=== PATIENT | male | born 1965 | race African-American/Black ===

== ENCOUNTER 2019-01-05 12:48 | Inpatient (IN) | payer OTHER, SELFPAY ==
[~2019-01-05] VITALS: Ht 170.2 cm; Wt 85.3 kg
[2019-01-05 14:03] LABS: BASO % 1 % (0-3); EOS % 1 % (0-3); HEMATOCRIT 41.5 % (39.0-53.0); HEMOGLOBIN 13.8 g/dL (13.0-17.5); LYMPH # 1.2 x10^3/uL (1.0-4.8); LYMPH % 23 % (24-48); MEAN CORPUSCULAR HEMOGLOBIN 28 pg (25-35); MEAN CORPUSCULAR HGB CONC 33 g/dL (31-37); MEAN CORPUSCULAR VOLUME 85 fL (79-100); MONO # 0.5 x10^3/uL (0.0-1.1); MONO % 10 % (0-9); NEUT # 3.5 x10^3uL (1.8-7.7); NEUT % 65 % (31-73); PLATELET COUNT 331 x10^3/uL (140-400); RED BLOOD COUNT 4.91 x10^6/uL (4.30-5.70); RED CELL DISTRIBUTION WIDTH 14.9 % (11.5-14.5); WHITE BLOOD COUNT 5.3 x10^3/uL (4.0-11.0)
[2019-01-05 14:09] LABS: CALCIUM 9.5 mg/dL (8.5-10.1); CREATININE 1.3 mg/dL (0.7-1.3); GFR 69.9
[2019-01-05 14:12] LABS: PROTHROMBIN TIME PATIENT 13.4 SEC (11.7-14.0)
[2019-01-05 14:15] LABS: ALBUMIN 3.9 g/dL (3.4-5.0); ALBUMIN/GLOBULIN RATIO 0.8 (1.0-1.7); TOTAL BILIRUBIN 0.4 mg/dL (0.2-1.0); TOTAL PROTEIN 8.5 g/dL (6.4-8.2)
--- NOTE | 2019-01-05 14:26 | EKG ---
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
--- NOTE | 2019-01-05 14:26 | RAD ---
CT HEAD WO CONTRAST Indication: Dizziness. Right-sided weakness. Exposure: One or more of the following individualized dose reduction techniques were utilized for this examination: 1. Automated exposure control 2. Adjustment of the mA and/or kV according to patient size 3. Use of iterative reconstruction technique. Technique: Standard imaging without intravenous contrast. No evidence of acute intracranial hemorrhage, mass effect, midline shift or abnormal extra-axial fluid collection. The ventricles and sulci are symmetric. Kennedy-white matter distinction appears maintained. Orbits are unremarkable. No large scalp hematoma. Partially visualized sinuses are clear. No acute skull abnormality. IMPRESSION: No evidence of acute intracranial hemorrhage or mass effect. Electronically signed by: Philip Hernandez MD (01/05/2019 2:23 PM) [id number]
[2019-01-05] MEDS ORDERED: CONTRAST GIVEN. MC PRN (15:00)
[2019-01-05] MEDS ORDERED: IOHEXOL 350 MG/ML 100 ML VIAL. IV ONE (15:00)
--- NOTE | 2019-01-05 15:16 | PHYS DOC ---
Past Medical History Past Medical History: Hypertension, Other (TIA) Past Surgical History: No Surgical History Alcohol Use: None Drug Use: Marijuana Adult General Chief Complaint Chief Complaint: DIZZY/LIGHT HEADED HPI HPI Patient is a 53 year old presented to the ER from work due to right side facial numbness, right side weakness since about 8 am today. Patient said he started having pain in his right side facial area since yesterday, woke up this morning and it was swollen. He went to work then started having dizziness episode with right side weakness. Patient denied any trouble with memory or speaking. He said he has history of stroke in the past and this episode is similar. Review of Systems Review of Systems Constitutional: Denies fever or chills [] Eyes: Denies change in visual acuity, redness, or eye pain [] HENT: Denies nasal congestion or sore throat, Positive for right upper facial pain and swelling. Respiratory: Denies cough or shortness of breath [] Cardiovascular: No additional information not addressed in HPI [] GI: Denies abdominal pain, nausea, vomiting, bloody stools or diarrhea [] : Denies dysuria or hematuria [] Musculoskeletal: Denies back pain or joint pain [] Integument: Denies rash or skin lesions [] Neurologic: Denies headache, Positive for Right side facial numbness, right side weakness. Endocrine: Denies polyuria or polydipsia [] All other systems were reviewed and found to be within normal limits, except as documented in this note. Current Medications Current Medications Current Medications Medications (Trade) Dose Ordered Sig/Suzan Start Time Stop Time Status Last Admin Dose Admin Info (CONTRAST GIVEN -- Rx MONITORING) 1 each PRN DAILY PRN 01/05/19 15:00 01/07/19 14:59 Iohexol (Omnipaque 350 Mg/ml) 75 ml 1X ONCE 01/05/19 15:00 01/05/19 15:01 DC 01/05/19 15:04 75 ML Allergies Allergies Allergies Coded Allergies Type Severity Reaction Last Updated Verified No Known Drug Allergies 01/05/19 No Physical Exam Physical Exam Constitutional: Well developed, well nourished, no acute distress, non-toxic appearance. [] HENT: Normocephalic, atraumatic, bilateral external ears normal, oropharynx moist, no oral exudates, nose normal. Right upper jaw swelling. There is tenderness to palpation in right upper gumline around the missed 2nd upper molar area. Eyes: PERRLA, EOMI, conjunctiva normal, no discharge. [] Neck: Normal range of motion, no tenderness, supple, no stridor. [] Cardiovascular:Heart rate regular rhythm, no murmur [] Lungs & Thorax: Bilateral breath sounds clear to auscultation [] Abdomen: Bowel sounds normal, soft, no tenderness, no masses, no pulsatile masses. [] Skin: Warm, dry, no erythema, no rash. [] Back: No tenderness, no CVA tenderness. [] Extremities: No tenderness, no cyanosis, no clubbing, ROM intact, no edema. [] Neurologic: Alert and oriented X 3, RIGHT LEG APPEARED WEAKER THAN LEFT LEG. HE WAS ABLE TO RAISE HIS RIGHT LEG UP AND NOT ABLE TO KEEP IT UP FOR 10 SECONDS. IT DRIFTED AND TOUCHED THE BED . speech clear. Psychologic: Affect normal, judgement normal, mood normal. [] Current Patient Data Vital Signs Vital Signs Date Time Temp Pulse Resp B/P (MAP) Pulse Ox O2 Delivery O2 Flow Rate FiO2 01/05/19 13:20 98.5 85 20 197/100 (132) 99 Room Air 98.5 Lab Values Laboratory Tests Test 01/05/19 13:45 White Blood Count 5.3 x10^3/uL (4.0-11.0) Red Blood Count 4.91 x10^6/uL (4.30-5.70) Hemoglobin 13.8 g/dL (13.0-17.5) Hematocrit 41.5 % (39.0-53.0) Mean Corpuscular Volume 85 fL (79-100) Mean Corpuscular Hemoglobin 28 pg (25-35) Mean Corpuscular Hemoglobin Concent 33 g/dL (31-37) Red Cell Distribution Width 14.9 % (11.5-14.5) H Platelet Count 331 x10^3/uL (140-400) Neutrophils (%) (Auto) 65 % (31-73) Lymphocytes (%) (Auto) 23 % (24-48) L Monocytes (%) (Auto) 10 % (0-9) H Eosinophils (%) (Auto) 1 % (0-3) Basophils (%) (Auto) 1 % (0-3) Neutrophils # (Auto) 3.5 x10^3uL (1.8-7.7) Lymphocytes # (Auto) 1.2 x10^3/uL (1.0-4.8) Monocytes # (Auto) 0.5 x10^3/uL (0.0-1.1) Eosinophils # (Auto) 0.0 x10^3/uL (0.0-0.7) Basophils # (Auto) 0.0 x10^3/uL (0.0-0.2) Prothrombin Time 13.4 SEC (11.7-14.0) Prothrombin Time INR 1.1 (0.8-1.1) PTT 34 SEC (24-38) Sodium Level 141 mmol/L (136-145) Potassium Level 4.0 mmol/L (3.5-5.1) Chloride Level 103 mmol/L (98-107) Carbon Dioxide Level 27 mmol/L (21-32) Anion Gap 11 (6-14) Blood Urea Nitrogen 17 mg/dL (8-26) Creatinine 1.3 mg/dL (0.7-1.3) Estimated GFR (Cockcroft-Gault) 69.9 BUN/Creatinine Ratio 13 (6-20) Glucose Level 90 mg/dL (70-99) Calcium Level 9.5 mg/dL (8.5-10.1) Total Bilirubin 0.4 mg/dL (0.2-1.0) Aspartate Amino Transferase (AST) 18 U/L (15-37) Alanine Aminotransferase (ALT) 31 U/L (16-63) Alkaline Phosphatase 92 U/L (46-116) Troponin I Quantitative < 0.017 ng/mL (0.000-0.055) Total Protein 8.5 g/dL (6.4-8.2) H Albumin 3.9 g/dL (3.4-5.0) Albumin/Globulin Ratio 0.8 (1.0-1.7) L Lipase 97 U/L (73-393) Laboratory Tests 01/05/19 13:45 Laboratory Tests 01/05/19 13:45 EKG EKG EKG RATE OF 91 BPM, NSR, NO STEMI[] Radiology/Procedures Radiology/Procedures [facility] [address] [place], [place] [id number] IMAGING REPORT Signed PATIENT: MALACHI MALDONADO ACCOUNT: [id number] : 1965 LOCATION: ER AGE: 53 SEX: M EXAM STATUS: REG ER ORD. PHYSICIAN: VERONICA MANNING DO REASON: RIGHT SIDE WEAKNESS, NUMBNESS SINCE 8 AM THIS MORNING PROCEDURE: CT ANGIOGRAPHY HEAD AND NECK PQRS Compliance Statement: One or more of the following individualized dose reduction techniques were utilized for this examination: 1. Automated exposure control 2. Adjustment of the mA and/or kV according to patient size 3. Use of iterative reconstruction technique CT ANGIOGRAPHY HEAD AND NECK Clinical Indication: Right-sided weakness and numbness since 8:00 AM this morning. Comparison: CT head without contrast, earlier same day. Technique: Helical CT imaging from inferior to the aortic arch to the skull vertex is performed after 75 cc of Omnipaque [address] angiogram protocol. 3-D MIP reconstructions of the cervical carotid arteries and [place] are performed. PQRS Compliance Statement - Stenosis calculations for CT, MR and conventional angiography are based upon measurement of the distal ICA diameter in accordance with the NASCET methodology. Stenosis calculations for carotid ultrasound studies are derived from validated velocity criteria which are known to correlate with the NASCET methodology. Findings: Aortic arch branches are patent, common origin of the innominate and left common carotid artery. The common carotid arteries are patent. Mild atherosclerotic calcification of the right carotid bulb without significant narrowing. Cervical right internal carotid artery is patent. Minimal atherosclerotic calcification left carotid bulb, no significant narrowing. Patent left internal carotid artery in the neck. The cervical vertebral arteries are patent. There is no evidence of dissection. The distal vertebral arteries are codominant. Basilar artery is patent. Posterior cerebral arteries are intact. There is atherosclerotic calcification and no more than mild narrowing of the bilateral cavernous internal carotid arteries. The right A1 segment is small caliber. There is patent anterior communicating artery. There is azygous A2 segment with subsequent branching versus directly apposed A2 segments. Middle cerebral arteries are patent. No intracranial stenosis or occlusion or intracranial aneurysm is identified. There is no abnormal enhancement in the brain parenchyma. There is no cervical adenopathy. There is biapical paraseptal emphysema. Degenerative spondylosis of the cervical spine. IMPRESSION: 1. There is no large vessel intracranial occlusion or stenosis. 2. Atherosclerotic calcification without significant narrowing of the bilateral cavernous internal carotid arteries. 3. Hypoplastic right A1 segment. Electronically signed by: Jose Hinojosa MD (01/05/2019 3:49 PM) [id number] DICTATED and SIGNED BY: JOSE HINOJOSA MD DATE: 01/05/19 1549 Course & Med Decision Making Course & Med Decision Making Pertinent Labs and Imaging studies reviewed. (See chart for details) [] Dragon Disclaimer Dragon Disclaimer This electronic medical record was generated, in whole or in part, using a voice recognition dictation system. Departure Departure Impression: Primary Impression: Right sided weakness Additional Impression: Dental abscess Disposition: ADMITTED INPATIENT Admitting Physician: Lou Michelle Condition: STABLE Referrals: NO PCP (PCP) Problem Qualifiers VERONICA MANNING DO January 05, 2019 15:16
--- NOTE | 2019-01-05 15:52 | RAD ---
PQRS Compliance Statement: One or more of the following individualized dose reduction techniques were utilized for this examination: 1. Automated exposure control 2. Adjustment of the mA and/or kV according to patient size 3. Use of iterative reconstruction technique CT ANGIOGRAPHY HEAD AND NECK Clinical Indication: Right-sided weakness and numbness since 8:00 AM this morning. Comparison: CT head without contrast, earlier same day. Technique: Helical CT imaging from inferior to the aortic arch to the skull vertex is performed after 75 cc of Omnipaque [address] angiogram protocol. 3-D MIP reconstructions of the cervical carotid arteries and [place] are performed. PQRS Compliance Statement - Stenosis calculations for CT, MR and conventional angiography are based upon measurement of the distal ICA diameter in accordance with the NASCET methodology. Stenosis calculations for carotid ultrasound studies are derived from validated velocity criteria which are known to correlate with the NASCET methodology. Findings: Aortic arch branches are patent, common origin of the innominate and left common carotid artery. The common carotid arteries are patent. Mild atherosclerotic calcification of the right carotid bulb without significant narrowing. Cervical right internal carotid artery is patent. Minimal atherosclerotic calcification left carotid bulb, no significant narrowing. Patent left internal carotid artery in the neck. The cervical vertebral arteries are patent. There is no evidence of dissection. The distal vertebral arteries are codominant. Basilar artery is patent. Posterior cerebral arteries are intact. There is atherosclerotic calcification and no more than mild narrowing of the bilateral cavernous internal carotid arteries. The right A1 segment is small caliber. There is patent anterior communicating artery. There is azygous A2 segment with subsequent branching versus directly apposed A2 segments. Middle cerebral arteries are patent. No intracranial stenosis or occlusion or intracranial aneurysm is identified. There is no abnormal enhancement in the brain parenchyma. There is no cervical adenopathy. There is biapical paraseptal emphysema. Degenerative spondylosis of the cervical spine. IMPRESSION: 1. There is no large vessel intracranial occlusion or stenosis. 2. Atherosclerotic calcification without significant narrowing of the bilateral cavernous internal carotid arteries. 3. Hypoplastic right A1 segment. Electronically signed by: Jose Hinojosa MD (01/05/2019 3:49 PM) [id number]
[2019-01-05] MEDS ORDERED: KETOROLAC 30 MG/ML VIAL. IV ONE (16:15)
[2019-01-05] MEDS ORDERED: CLINDAMYCIN 900MG PREMIX 50 ML IV ONE (16:15)
[2019-01-05] MEDS ORDERED: ONDANSETRON PF 4 MG/2 ML VIAL. IV PRN (16:30)
--- NOTE | 2019-01-05 19:23 | PDOC1 ---
History and Physical Date of Admission: Date of Admission DATE: 01/05/19 TIME: 19:21 Chief Complaint: Problems: (1) Dental abscess (2) Right sided weakness Chief Complain: Right-sided weakness History of Present Illness: HPI: Patient is a pleasant middle-aged -[place] male who states she's had a previous stroke with right-sided weakness but it resolved Now he has recurrent right-sided weakness with associated numbness occurred for several hours Describes as irritating Rated 9 out of 10 Worse with trying to move He tried taking some [id number] meds for that and seemed to help We did some imaging in the ER really doesn't show any acute changes but appears the patient may have had another stroke Were going to admit the patient and consult neurology Past Medical/Surgical History: PMH/PSH: Hypertension and marijuana use and previous stroke Allergies: Allergies: Coded Allergies: No Known Drug Allergies (Unverified , 01/05/19) Family History: Family History: Strokes Social History: Social Hisoty: He doesn't drink smoke or take drugs Current Medications: Current Medications Current Medications Iohexol (Omnipaque 350 Mg/ml) 75 ml 1X ONCE IV Last administered on 01/05/19at 15:04; Start 01/05/19 at 15:00; Stop 01/05/19 at 15:01; Status DC Info (CONTRAST GIVEN -- Rx MONITORING) 1 each PRN DAILY PRN MC SEE COMMENTS; Start 01/05/19 at 15:00; Stop 01/07/19 at 14:59 Clindamycin Phosphate 50 ml @ 100 mls/hr 1X ONCE IV Last administered on at 16:43; Start 01/05/19 at 16:15; Stop 01/05/19 at 16:44; Status DC Ketorolac Tromethamine (Toradol 30mg Vial) 30 mg 1X ONCE IV Last administered on 01/05/19at 16:38; Start 01/05/19 at 16:15; Stop 01/05/19 at 16:16; Status DC Ondansetron HCl (Zofran) 4 mg PRN Q8HRS PRN IV NAUSEA/VOMITING; Start 01/05/19 at 16:30; Stop 01/06/19 at 16:29 Clindamycin Phosphate 50 ml @ 100 mls/hr Q8HRS IV ; Start 01/05/19 at 22:00 ROS: Review of Systems Review of System REVIEW OF SYSTEMS: GENERAL: Denies weakness SKIN: No bruising, hair changes or rashes. EYES: No blurred, double or loss of vision. NOSE AND THROAT: No history of nosebleeds, hoarseness or sore throat. HEART: No history of palpitations, chest pain or shortness of breath on exertion. LUNGS: Denies cough, hemoptysis, wheezing or shortness of breath. GASTROINTESTINAL: Denies changes in appetite, nausea, vomiting, diarrhea or constipation. GENITOURINARY: No history of frequency, urgency, hesitancy or nocturia. NEUROLOGIC: He complains of right-sided weakness PSYCHIATRIC: No history of panic, anxiety or depression. ENDOCRINE: No history of heat or cold intolerance, polyuria or polydipsia. EXTREMITIES: Denies muscle weakness, joint pain, pain on walking or stiffness. Physical Exam: Vital Signs: Vital Signs Date Time Temp Pulse Resp B/P (MAP) Pulse Ox O2 Delivery O2 Flow Rate FiO2 01/05/19 13:20 98.5 85 20 197/100 (132) 99 Room Air 98.5 Physcial Exam: GEN.: No apparent distress. Alert and oriented. HEENT: Head is normocephalic, atraumatic NECK: Supple, no JVD LUNGS: Clear to auscultation without rhonchi or wheezing HEART: RRR, S1, S2 present. Peripheral pulses intact ABDOMEN: Soft, nontender. Positive bowel sounds no organomegaly EXTREMITIES: Without any cyanosis, clubbing, or edema. 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 Stable SKIN: No ulcerations or rashes VASCULAR: Good capillary refill Labs: Labs: Laboratory Tests Test 01/05/19 13:45 White Blood Count 5.3 x10^3/uL (4.0-11.0) Red Blood Count 4.91 x10^6/uL (4.30-5.70) Hemoglobin 13.8 g/dL (13.0-17.5) Hematocrit 41.5 % (39.0-53.0) Mean Corpuscular Volume 85 fL (79-100) Mean Corpuscular Hemoglobin 28 pg (25-35) Mean Corpuscular Hemoglobin Concent 33 g/dL (31-37) Red Cell Distribution Width 14.9 % (11.5-14.5) Platelet Count 331 x10^3/uL (140-400) Neutrophils (%) (Auto) 65 % (31-73) Lymphocytes (%) (Auto) 23 % (24-48) Monocytes (%) (Auto) 10 % (0-9) Eosinophils (%) (Auto) 1 % (0-3) Basophils (%) (Auto) 1 % (0-3) Neutrophils # (Auto) 3.5 x10^3uL (1.8-7.7) Lymphocytes # (Auto) 1.2 x10^3/uL (1.0-4.8) Monocytes # (Auto) 0.5 x10^3/uL (0.0-1.1) Eosinophils # (Auto) 0.0 x10^3/uL (0.0-0.7) Basophils # (Auto) 0.0 x10^3/uL (0.0-0.2) Prothrombin Time 13.4 SEC (11.7-14.0) Prothromb Time International Ratio 1.1 (0.8-1.1) Activated Partial Thromboplast Time 34 SEC (24-38) Sodium Level 141 mmol/L (136-145) Potassium Level 4.0 mmol/L (3.5-5.1) Chloride Level 103 mmol/L (98-107) Carbon Dioxide Level 27 mmol/L (21-32) Anion Gap 11 (6-14) Blood Urea Nitrogen 17 mg/dL (8-26) Creatinine 1.3 mg/dL (0.7-1.3) Estimated GFR (Cockcroft-Gault) 69.9 BUN/Creatinine Ratio 13 (6-20) Glucose Level 90 mg/dL (70-99) Calcium Level 9.5 mg/dL (8.5-10.1) Total Bilirubin 0.4 mg/dL (0.2-1.0) Aspartate Amino Transf (AST/SGOT) 18 U/L (15-37) Alanine Aminotransferase (ALT/SGPT) 31 U/L (16-63) Alkaline Phosphatase 92 U/L (46-116) Troponin I Quantitative < 0.017 ng/mL (0.000-0.055) Total Protein 8.5 g/dL (6.4-8.2) Albumin 3.9 g/dL (3.4-5.0) Albumin/Globulin Ratio 0.8 (1.0-1.7) Lipase 97 U/L (73-393) Laboratory Tests Test 01/05/19 13:45 White Blood Count 5.3 x10^3/uL (4.0-11.0) Red Blood Count 4.91 x10^6/uL (4.30-5.70) Hemoglobin 13.8 g/dL (13.0-17.5) Hematocrit 41.5 % (39.0-53.0) Mean Corpuscular Volume 85 fL (79-100) Mean Corpuscular Hemoglobin 28 pg (25-35) Mean Corpuscular Hemoglobin Concent 33 g/dL (31-37) Red Cell Distribution Width 14.9 % (11.5-14.5) Platelet Count 331 x10^3/uL (140-400) Neutrophils (%) (Auto) 65 % (31-73) Lymphocytes (%) (Auto) 23 % (24-48) Monocytes (%) (Auto) 10 % (0-9) Eosinophils (%) (Auto) 1 % (0-3) Basophils (%) (Auto) 1 % (0-3) Neutrophils # (Auto) 3.5 x10^3uL (1.8-7.7) Lymphocytes # (Auto) 1.2 x10^3/uL (1.0-4.8) Monocytes # (Auto) 0.5 x10^3/uL (0.0-1.1) Eosinophils # (Auto) 0.0 x10^3/uL (0.0-0.7) Basophils # (Auto) 0.0 x10^3/uL (0.0-0.2) Prothrombin Time 13.4 SEC (11.7-14.0) Prothromb Time International Ratio 1.1 (0.8-1.1) Activated Partial Thromboplast Time 34 SEC (24-38) Sodium Level 141 mmol/L (136-145) Potassium Level 4.0 mmol/L (3.5-5.1) Chloride Level 103 mmol/L (98-107) Carbon Dioxide Level 27 mmol/L (21-32) Anion Gap 11 (6-14) Blood Urea Nitrogen 17 mg/dL (8-26) Creatinine 1.3 mg/dL (0.7-1.3) Estimated GFR (Cockcroft-Gault) 69.9 BUN/Creatinine Ratio 13 (6-20) Glucose Level 90 mg/dL (70-99) Calcium Level 9.5 mg/dL (8.5-10.1) Total Bilirubin 0.4 mg/dL (0.2-1.0) Aspartate Amino Transf (AST/SGOT) 18 U/L (15-37) Alanine Aminotransferase (ALT/SGPT) 31 U/L (16-63) Alkaline Phosphatase 92 U/L (46-116) Troponin I Quantitative < 0.017 ng/mL (0.000-0.055) Total Protein 8.5 g/dL (6.4-8.2) Albumin 3.9 g/dL (3.4-5.0) Albumin/Globulin Ratio 0.8 (1.0-1.7) Lipase 97 U/L (73-393) Images: Images CT head IMPRESSION: 1. There is no large vessel intracranial occlusion or stenosis. 2. Atherosclerotic calcification without significant narrowing of the bilateral cavernous internal carotid arteries. 3. Hypoplastic right A1 segment. Assessment/Plan Assessment/Plan Stroke symptoms Plan Increase his aspirin Consult neurology PT OT Suspect he might need an MRI but will await neurology input DVT prophylaxis Full code Home meds STEPHEN MACIEL III DO January 05, 2019 19:23
[2019-01-05 19:35] VITALS: BP 175/92
[2019-01-05] MEDS: CLINDAMYCIN 900MG PREMIX 50 ML IV SCH (22:11)
[2019-01-05 23:40] VITALS: BP 144/81
[2019-01-06] MEDS ORDERED: LISI-130 PO (00:19)
[2019-01-06] MEDS ORDERED: ASPI325T8 PO (00:19)
[2019-01-06] MEDS ORDERED: ATOR20TA58 PO (00:19)
[2019-01-06] MEDS ORDERED: ACETAMINOPHEN 325 MG TABLET. PO PRN ×2 (01:30→08:30)
[2019-01-06] MEDS: traMADol 50 MG TABLET PO PRN ×3 (02:48→14:17)
[2019-01-06 03:35] VITALS: BP 174/91
[2019-01-06] MEDS: CLINDAMYCIN 900MG PREMIX 50 ML IV SCH ×3 (05:59→20:50)
[2019-01-06] MEDS: HYDROcodone/APAP 5/325MG 1 TAB TABLET PO PRN ×2 (05:59→22:16)
[2019-01-06 07:30] VITALS: BP 146/84
[2019-01-06] MEDS: ATORVASTATIN CALCIUM 20 MG TABLET PO SCH (08:23)
[2019-01-06] MEDS: LISINOPRIL 20 MG TABLET PO SCH (08:24)
[2019-01-06] MEDS: ASPIRIN 325 MG TABLET PO SCH (08:24)
[2019-01-06] MEDS ORDERED: ACETAMINOPHEN 650 MG SUPP.RECT. PR PRN (08:30)
--- NOTE | 2019-01-06 08:46 | PDOC2 ---
NEUROLOGY CONSULT Date of Admission Date of Admission DATE: 01/06/19 TIME: 08:40 Reason for Consult Reason for Consult: Right-sided numbness and weakness Referring Physician Referring Physician: Dr. 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 He noticed some numbness and weakness on the right side yesterday morning. He says he made about a 70% recovery from the prior strokes but gets around unassisted. He had trouble walking. There was no trouble speaking. There was both numbness and weakness on the right side but no cognitive deficits or visual changes. Patient's blood pressure was elevated. He has no history of seizure or head injury. Past Medical History Cardiovascular: HTN CENTRAL NERVOUS SYSTEM: CVA, TIA, Other (headaches) Musculoskeletal: low back pain Renal/: Other (kidney stones) Past Surgical History Past Surgical History: No pertinent history Family History Family History: Hypertension Social History Social History Unemployed, single, no alcohol or tobacco, occasional use of marijuana Current Medications Current Medications Current Medications Iohexol (Omnipaque 350 Mg/ml) 75 ml 1X ONCE IV Last administered on 01/05/19at 15:04; Start 01/05/19 at 15:00; Stop 01/05/19 at 15:01; Status DC Info (CONTRAST GIVEN -- Rx MONITORING) 1 each PRN DAILY PRN MC SEE COMMENTS; Start 01/05/19 at 15:00; Stop 01/07/19 at 14:59 Clindamycin Phosphate 50 ml @ 100 mls/hr 1X ONCE IV Last administered on 01/05/19at 16:43; Start 01/05/19 at 16:15; Stop 01/05/19 at 16:44; Status DC Ketorolac Tromethamine (Toradol 30mg Vial) 30 mg 1X ONCE IV Last administered on 01/05/19at 16:38; Start 01/05/19 at 16:15; Stop 01/05/19 at 16:16; Status DC Ondansetron HCl (Zofran) 4 mg PRN Q8HRS PRN IV NAUSEA/VOMITING; Start 01/05/19 at 16:30; Stop 01/06/19 at 16:29 Clindamycin Phosphate 50 ml @ 100 mls/hr Q8HRS IV Last administered on 01/06/19 05:59; Start 01/05/19 at 22:00 Aspirin (Kori Aspirin) 325 mg DAILY PO Last administered on 01/06/19at 08:24; Start 01/06/19 at 09:00 Atorvastatin Calcium (Lipitor) 20 mg DAILY PO Last administered on 01/06/19at 08:23; Start 01/06/19 at 09:00 Lisinopril (Prinivil) 40 mg DAILY PO Last administered on 01/06/19at 08:24; Start 01/06/19 at 09:00 Acetaminophen (Tylenol) 650 mg PRN Q6HRS PRN PO mild pain; Start 01/06/19 at 01:30 Tramadol HCl (Ultram) 50 mg PRN Q4HRS PRN PO moderate pain Last administered on 01/06/19at 08:25; Start 01/06/19 at 01:30 Acetaminophen/ Hydrocodone Bitart (Lortab 5/325) 1 tab PRN Q3HRS PRN PO severe pain Last administered on 01/06/19at 05:59; Start 01/06/19 at 01:30 Acetaminophen (Tylenol) 650 mg PRN Q6HRS PRN PO TEMP > 100.4F; Start 01/06/19 at 08:30 Acetaminophen (Tylenol Supp) 650 mg PRN Q4HRS PRN MD TEMP > 100.4F; Start 01/06/19 at 08:30 Clopidogrel Bisulfate (Plavix) 75 mg DAILYWBKFT PO ; Start 01/06/19 at 08:30 Active Scripts Active Reported Aspirin 325 Mg Tablet 325 Mg PO DAILY Atorvastatin Calcium 20 Mg Tablet 20 Mg PO DAILY Lisinopril 40 Mg Tablet 40 Mg PO DAILY Allergies Allergies: Coded Allergies: No Known Drug Allergies (Unverified , 01/05/19) ROS Review of System Negative for fever, chills, weight loss, shortness of breath, chest pain, indigestion, hematochezia, melena, and dysuria. Full 14-point review of systems is negative. Physical Exam Physical Examination General: Well-developed, well-nourished black male in no acute distress HEENT: Normocephalic andatraumatic. Temporal arteriespulsatile and nontender. Neck: Supple without bruit, no meningismus Musculoskeletal: Stability:see neurologic. Gait exam:see neurologic. Tone:see neurologic.Strength:see neurologic. Neurological: Mental Status:intact, orientation, memory, attention span/concentration, language, fund of knowledge normal. Cranial Nerves:Pupils equal and reactive to light, extraocular movements areintact, visual tello are full to confrontation. Facial sensation is normal. There is no facial asymmetry. Vestibulo-ocular reflex is intact. Palate elevates and tongue protrudes in midline. All other cranial related problems are negative except as mentioned before.Reflexes:2+ and symmetric with flexor plantar responses. Motor:4/5 right hemiparesis, normal strength on left, with normal tone and bulk. Coordination:Finger-nose finger and podr-ib-ywxp testing are normal on left, no ataxia out of proportion to weakness on the right. Rapid alternating movements and fine finger movements are intact. Gait:not tested. Sensory:Right sided pinprick loss Vitals VITALS Vital Signs Date Time Temp Pulse Resp B/P (MAP) Pulse Ox O2 Delivery O2 Flow Rate FiO2 01/06/19 08:25 19 95 Room Air 01/06/19 08:24 78 146/84 01/06/19 07:30 98.5 98.5 Labs Labs Laboratory Tests Test 01/05/19 13:45 White Blood Count 5.3 x10^3/uL (4.0-11.0) Red Blood Count 4.91 x10^6/uL (4.30-5.70) Hemoglobin 13.8 g/dL (13.0-17.5) Hematocrit 41.5 % (39.0-53.0) Mean Corpuscular Volume 85 fL (79-100) Mean Corpuscular Hemoglobin 28 pg (25-35) Mean Corpuscular Hemoglobin Concent 33 g/dL (31-37) Red Cell Distribution Width 14.9 % (11.5-14.5) Platelet Count 331 x10^3/uL (140-400) Neutrophils (%) (Auto) 65 % (31-73) Lymphocytes (%) (Auto) 23 % (24-48) Monocytes (%) (Auto) 10 % (0-9) Eosinophils (%) (Auto) 1 % (0-3) Basophils (%) (Auto) 1 % (0-3) Neutrophils # (Auto) 3.5 x10^3uL (1.8-7.7) Lymphocytes # (Auto) 1.2 x10^3/uL (1.0-4.8) Monocytes # (Auto) 0.5 x10^3/uL (0.0-1.1) Eosinophils # (Auto) 0.0 x10^3/uL (0.0-0.7) Basophils # (Auto) 0.0 x10^3/uL (0.0-0.2) Prothrombin Time 13.4 SEC (11.7-14.0) Prothromb Time International Ratio 1.1 (0.8-1.1) Activated Partial Thromboplast Time 34 SEC (24-38) Sodium Level 141 mmol/L (136-145) Potassium Level 4.0 mmol/L (3.5-5.1) Chloride Level 103 mmol/L (98-107) Carbon Dioxide Level 27 mmol/L (21-32) Anion Gap 11 (6-14) Blood Urea Nitrogen 17 mg/dL (8-26) Creatinine 1.3 mg/dL (0.7-1.3) Estimated GFR (Cockcroft-Gault) 69.9 BUN/Creatinine Ratio 13 (6-20) Glucose Level 90 mg/dL (70-99) Calcium Level 9.5 mg/dL (8.5-10.1) Total Bilirubin 0.4 mg/dL (0.2-1.0) Aspartate Amino Transf (AST/SGOT) 18 U/L (15-37) Alanine Aminotransferase (ALT/SGPT) 31 U/L (16-63) Alkaline Phosphatase 92 U/L (46-116) Troponin I Quantitative < 0.017 ng/mL (0.000-0.055) Total Protein 8.5 g/dL (6.4-8.2) Albumin 3.9 g/dL (3.4-5.0) Albumin/Globulin Ratio 0.8 (1.0-1.7) Lipase 97 U/L (73-393) Laboratory Tests Test 01/05/19 13:45 White Blood Count 5.3 x10^3/uL (4.0-11.0) Red Blood Count 4.91 x10^6/uL (4.30-5.70) Hemoglobin 13.8 g/dL (13.0-17.5) Hematocrit 41.5 % (39.0-53.0) Mean Corpuscular Volume 85 fL (79-100) Mean Corpuscular Hemoglobin 28 pg (25-35) Mean Corpuscular Hemoglobin Concent 33 g/dL (31-37) Red Cell Distribution Width 14.9 % (11.5-14.5) Platelet Count 331 x10^3/uL (140-400) Neutrophils (%) (Auto) 65 % (31-73) Lymphocytes (%) (Auto) 23 % (24-48) Monocytes (%) (Auto) 10 % (0-9) Eosinophils (%) (Auto) 1 % (0-3) Basophils (%) (Auto) 1 % (0-3) Neutrophils # (Auto) 3.5 x10^3uL (1.8-7.7) Lymphocytes # (Auto) 1.2 x10^3/uL (1.0-4.8) Monocytes # (Auto) 0.5 x10^3/uL (0.0-1.1) Eosinophils # (Auto) 0.0 x10^3/uL (0.0-0.7) Basophils # (Auto) 0.0 x10^3/uL (0.0-0.2) Prothrombin Time 13.4 SEC (11.7-14.0) Prothromb Time International Ratio 1.1 (0.8-1.1) Activated Partial Thromboplast Time 34 SEC (24-38) Sodium Level 141 mmol/L (136-145) Potassium Level 4.0 mmol/L (3.5-5.1) Chloride Level 103 mmol/L (98-107) Carbon Dioxide Level 27 mmol/L (21-32) Anion Gap 11 (6-14) Blood Urea Nitrogen 17 mg/dL (8-26) Creatinine 1.3 mg/dL (0.7-1.3) Estimated GFR (Cockcroft-Gault) 69.9 BUN/Creatinine Ratio 13 (6-20) Glucose Level 90 mg/dL (70-99) Calcium Level 9.5 mg/dL (8.5-10.1) Total Bilirubin 0.4 mg/dL (0.2-1.0) Aspartate Amino Transf (AST/SGOT) 18 U/L (15-37) Alanine Aminotransferase (ALT/SGPT) 31 U/L (16-63) Alkaline Phosphatase 92 U/L (46-116) Troponin I Quantitative < 0.017 ng/mL (0.000-0.055) Total Protein 8.5 g/dL (6.4-8.2) Albumin 3.9 g/dL (3.4-5.0) Albumin/Globulin Ratio 0.8 (1.0-1.7) Lipase 97 U/L (73-393) Images Images CT HEAD WO CONTRAST Indication: Dizziness. Right-sided weakness. Exposure: One or more of the following individualized dose reduction techniques were utilized for this examination: 1. Automated exposure control 2. Adjustment of the mA and/or kV according to patient size 3. Use of iterative reconstruction technique. Technique: Standard imaging without intravenous contrast. No evidence of acute intracranial hemorrhage, mass effect, midline shift or abnormal extra-axial fluid collection. The ventricles and sulci are symmetric. Kennedy-white matter distinction appears maintained. Orbits are unremarkable. No large scalp hematoma. Partially visualized sinuses are clear. No acute skull abnormality. IMPRESSION: No evidence of acute intracranial hemorrhage or mass effect. CT ANGIOGRAPHY HEAD AND NECK Clinical Indication: Right-sided weakness and numbness since 8:00 AM this morning. Comparison: CT head without contrast, earlier same day. Technique: Helical CT imaging from inferior to the aortic arch to the skull vertex is performed after 75 cc of Omnipaque [address] angiogram protocol. 3-D MIP reconstructions of the cervical carotid arteries and [place] are performed. PQRS Compliance Statement - Stenosis calculations for CT, MR and conventional angiography are based upon measurement of the distal ICA diameter in accordance with the NASCET methodology. Stenosis calculations for carotid ultrasound studies are derived from validated velocity criteria which are known to correlate with the NASCET methodology. Findings: Aortic arch branches are patent, common origin of the innominate and left common carotid artery. The common carotid arteries are patent. Mild atherosclerotic calcification of the right carotid bulb without significant narrowing. Cervical right internal carotid artery is patent. Minimal atherosclerotic calcification left carotid bulb, no significant narrowing. Patent left internal carotid artery in the neck. The cervical vertebral arteries are patent. There is no evidence of dissection. The distal vertebral arteries are codominant. Basilar artery is patent. Posterior cerebral arteries are intact. There is atherosclerotic calcification and no more than mild narrowing of the bilateral cavernous internal carotid arteries. The right A1 segment is small caliber. There is patent anterior communicating artery. There is azygous A2 segment with subsequent branching versus directly apposed A2 segments. Middle cerebral arteries are patent. No intracranial stenosis or occlusion or intracranial aneurysm is identified. There is no abnormal enhancement in the brain parenchyma. There is no cervical adenopathy. There is biapical paraseptal emphysema. Degenerative spondylosis of the cervical spine. IMPRESSION: 1. There is no large vessel intracranial occlusion or stenosis. 2. Atherosclerotic calcification without significant narrowing of the bilateral cavernous internal carotid arteries. 3. Hypoplastic right A1 segment. Assessment/Plan Assessment/Plan Impression: Left hemispheric small-vessel, lacunar, stroke, no evidence of large-vessel disease, apparently recurrent symptoms. These could be from his hypertension and he may not have even had a new stroke, but an MRI will settle matter. He has had a normal CT angiogram already. Recommendations: He has failed on aspirin, I will add on clopidogrel with an aim to discontinue the aspirin after a few weeks Echocardiogram Rehabilitation modalities, I suspect he will need inpatient therapy MRI of the brain Continue statin, check lipids Thank you for letting me help with the patient's care. YISEL ARZOLA MD January 06, 2019 08:46
[2019-01-06] MEDS ORDERED: ONDANSETRON PF 4 MG/2 ML VIAL. IV PRN (09:45)
[2019-01-06] MEDS ORDERED: LABETALOL 20 MG/4 ML DISP.SYRIN. IVP PRN (09:45)
--- NOTE | 2019-01-06 11:02 | RAD ---
MRI of the brain without contrast 01/06/2019 Clinical History: Dizziness, right-sided weakness. Technique: Unenhanced T1-weighted sagittal and axial, T2-weighted axial and coronal and FLAIR, gradient echo and diffusion-weighted axial images of the brain were obtained. Findings: Comparison is made to the patient's CT scan of the head dated 01/05/2019. There is mild generalized parenchymal atrophy. Patchy and a few small scattered areas of increased signal intensity are seen within the periventricular and subcortical white matter of both cerebral hemispheres on the FLAIR and T2-weighted images consistent with areas of minimal small vessel ischemic disease. No acute parenchymal abnormality is seen. No extra-axial fluid collection is seen. There is no MRI evidence of acute ischemia/infarction. Mild mucosal thickening in seen scattered throughout the paranasal sinuses. There are minimal bilateral mastoid effusions. Normal flow voids are seen within the major vascular structures surrounding the brain parenchyma. Impression: No acute parenchymal abnormality is seen. Electronically signed by: Issa Hickey MD (01/06/2019 10:59 AM) [id number]
--- NOTE | 2019-01-06 11:25 | NUR ---
Bedside Swallow Evaluation completed. Please refer to full evaluation for additional information. Impressions: Functional oropharyngeal swallow. While pt demonstrates min-mild R facial/labial weakness, and has mild mastication inefficiency r/t dental abscess and missing dentition, pt appears at low risk of aspiration for all consistencies. Pt independently manages boluses to chew on L side to decrease pain. No s/s aspiration were observed throughout evaluation. Recommendations: Continue current regular diet and thin liquids. General swallow precautions (especially sitting upright for eating and drinking) which were d/w pt and pt's mother at bedside. No additional ST intervention indicated at this time.
[2019-01-06 11:50] VITALS: BP 148/91
--- NOTE | 2019-01-06 12:28 | CARD ---
MR#: [id number] Date of Study: 01/06/2019 Ordering Physician: YISEL ARZOLA, Referring Physician: STEPHEN MACIEL Tech: Mandi Torres KVNG APPROVED REPORT EXAM: Two-dimensional and M-mode echocardiogram with Doppler, color Doppler with bubble study. Other Information Quality : GoodHR: 60bpm Rhythm : NSR INDICATION CVA/TIA 2D DIMENSIONS RVDd3.2 (2.9-3.5cm)Left Atrium(2D)3.4 (1.6-4.0cm) IVSd1.2 (0.7-1.1cm)Aortic Root(2D)3.0 (2.0-3.7cm) LVDd4.1 (3.9-5.9cm)LVOT Diameter2.0 (1.8-2.4cm) PWd0.9 (0.7-1.1cm)LVDs3.1 (2.5-4.0cm) FS (%) 25.3 %SV38.4 ml LVEF(%)50.3 (>50%) M-Mode DIMENSIONS Left Atrium(MM)3.26 (2.5-4.0cm)Aortic Root2.98 (2.2-3.7cm) Aortic Valve AoV Peak Klever.108.5cm/sAoV VTI23.4cm AO Peak GR.4.7mmHgLVOT Peak Klever.90.5cm/s AO Mean GR.3mmHgAVA (VMAX)2.60cm2 AUGUSTINE (VTI)2.60cm2 Mitral Valve MV E Zzbvrmjj40.6cm/sMV DECEL RZAB068bi MV A Obrxkzuu15.5cm/sE/A Ratio1.7 Pulmonary Valve PV Peak Zqkkxnvx53.9cm/s LEFT VENTRICLE The left ventricle is normal size. Proximal septal thickening is noted. Left ventricle systolic funct ion is normal. The Ejection Fraction is 55-60%. There is normal LV segmental wall motion. Transmitral Doppler flow pattern is Grade II-pseudonormal filling dynamics. RIGHT VENTRICLE The right ventricle is normal size. There is normal right ventricular wall thickness. The right ventr icular systolic function is normal. ATRIA The left atrium size is normal. The right atrium size is normal. The interatrial septum is intact wit h no evidence for an atrial septal defect or patent foramen ovale as noted on 2-D or Doppler imaging. Injection of bubbles documented no interatrial shunt. AORTIC VALVE The aortic valve is calcified but opens well. The aortic valve is trileaflet. Doppler and Color Flow revealed no significant aortic regurgitation. There is no significant aortic valvular stenosis. MITRAL VALVE The mitral valve is normal in structure and function. There is no evidence of mitral valve prolapse. There is no mitral valve stenosis. Doppler and Color Flow revealed no mitral valve regurgitation note d. TRICUSPID VALVE The tricuspid valve is normal in structure and function. Doppler and Color Flow revealed trace tricus pid regurgitation. There is no tricuspid valve prolapse or vegetation. There is no tricuspid valve st enosis. PULMONIC VALVE The pulmonic valve is not well visualized. GREAT VESSELS The aortic root is normal in size. The ascending aorta is normal in size. The IVC is normal in size a nd collapses >50% with inspiration. PERICARDIAL EFFUSION There is no evidence of significant pericardial effusion. Critical Notification Critical Value: No <Conclusion> Left ventricle systolic function is normal. The Ejection Fraction is 55-60%. There is normal LV segmental wall motion. Doppler and Color Flow revealed trace tricuspid regurgitation. There is no evidence of significant pericardial effusion. Injection of bubbles documented no interatrial shunt. Signed by : Adam Jade, Electronically Approved : 01/06/2019 12:27:27
[2019-01-06] MEDS ORDERED: CLOP75TA PO (12:52)
[2019-01-06] MEDS ORDERED: CLIN300C8 PO (12:55)
--- NOTE | 2019-01-06 12:59 | PDOC3 ---
Discharge Summary Visit Information Date of Admission: January 05, 2019 Date of Discharge: January 06, 2019 Admitting Diagnosis Comment: Left hemispheric small-vessel, lacunar, stroke, no evidence of large-vessel disease, DentaL abscess Hx CVA, [facility] intervention Final Diagnosis Problems Medical Problems: (1) Dental abscess Status: Acute (2) Right sided weakness Status: Acute Brief Hospital Course Allergies Allergies Coded Allergies Type Severity Reaction Last Updated Verified No Known Drug Allergies 01/05/19 No Vital Signs Vital Signs Date Time Temp Pulse Resp B/P (MAP) Pulse Ox O2 Delivery O2 Flow Rate FiO2 01/06/19 11:50 98.4 74 20 148/91 (110) 99 Room Air 98.4 Lab Results Laboratory Tests Test 01/05/19 13:45 White Blood Count 5.3 x10^3/uL (4.0-11.0) Red Blood Count 4.91 x10^6/uL (4.30-5.70) Hemoglobin 13.8 g/dL (13.0-17.5) Hematocrit 41.5 % (39.0-53.0) Mean Corpuscular Volume 85 fL (79-100) Mean Corpuscular Hemoglobin 28 pg (25-35) Mean Corpuscular Hemoglobin Concent 33 g/dL (31-37) Red Cell Distribution Width 14.9 % (11.5-14.5) Platelet Count 331 x10^3/uL (140-400) Neutrophils (%) (Auto) 65 % (31-73) Lymphocytes (%) (Auto) 23 % (24-48) Monocytes (%) (Auto) 10 % (0-9) Eosinophils (%) (Auto) 1 % (0-3) Basophils (%) (Auto) 1 % (0-3) Neutrophils # (Auto) 3.5 x10^3uL (1.8-7.7) Lymphocytes # (Auto) 1.2 x10^3/uL (1.0-4.8) Monocytes # (Auto) 0.5 x10^3/uL (0.0-1.1) Eosinophils # (Auto) 0.0 x10^3/uL (0.0-0.7) Basophils # (Auto) 0.0 x10^3/uL (0.0-0.2) Prothrombin Time 13.4 SEC (11.7-14.0) Prothromb Time International Ratio 1.1 (0.8-1.1) Activated Partial Thromboplast Time 34 SEC (24-38) Sodium Level 141 mmol/L (136-145) Potassium Level 4.0 mmol/L (3.5-5.1) Chloride Level 103 mmol/L (98-107) Carbon Dioxide Level 27 mmol/L (21-32) Anion Gap 11 (6-14) Blood Urea Nitrogen 17 mg/dL (8-26) Creatinine 1.3 mg/dL (0.7-1.3) Estimated GFR (Cockcroft-Gault) 69.9 BUN/Creatinine Ratio 13 (6-20) Glucose Level 90 mg/dL (70-99) Calcium Level 9.5 mg/dL (8.5-10.1) Total Bilirubin 0.4 mg/dL (0.2-1.0) Aspartate Amino Transf (AST/SGOT) 18 U/L (15-37) Alanine Aminotransferase (ALT/SGPT) 31 U/L (16-63) Alkaline Phosphatase 92 U/L (46-116) Troponin I Quantitative < 0.017 ng/mL (0.000-0.055) Total Protein 8.5 g/dL (6.4-8.2) Albumin 3.9 g/dL (3.4-5.0) Albumin/Globulin Ratio 0.8 (1.0-1.7) Lipase 97 U/L (73-393) Laboratory Tests Test 01/05/19 13:45 White Blood Count 5.3 x10^3/uL (4.0-11.0) Red Blood Count 4.91 x10^6/uL (4.30-5.70) Hemoglobin 13.8 g/dL (13.0-17.5) Hematocrit 41.5 % (39.0-53.0) Mean Corpuscular Volume 85 fL (79-100) Mean Corpuscular Hemoglobin 28 pg (25-35) Mean Corpuscular Hemoglobin Concent 33 g/dL (31-37) Red Cell Distribution Width 14.9 % (11.5-14.5) Platelet Count 331 x10^3/uL (140-400) Neutrophils (%) (Auto) 65 % (31-73) Lymphocytes (%) (Auto) 23 % (24-48) Monocytes (%) (Auto) 10 % (0-9) Eosinophils (%) (Auto) 1 % (0-3) Basophils (%) (Auto) 1 % (0-3) Neutrophils # (Auto) 3.5 x10^3uL (1.8-7.7) Lymphocytes # (Auto) 1.2 x10^3/uL (1.0-4.8) Monocytes # (Auto) 0.5 x10^3/uL (0.0-1.1) Eosinophils # (Auto) 0.0 x10^3/uL (0.0-0.7) Basophils # (Auto) 0.0 x10^3/uL (0.0-0.2) Prothrombin Time 13.4 SEC (11.7-14.0) Prothromb Time International Ratio 1.1 (0.8-1.1) Activated Partial Thromboplast Time 34 SEC (24-38) Sodium Level 141 mmol/L (136-145) Potassium Level 4.0 mmol/L (3.5-5.1) Chloride Level 103 mmol/L (98-107) Carbon Dioxide Level 27 mmol/L (21-32) Anion Gap 11 (6-14) Blood Urea Nitrogen 17 mg/dL (8-26) Creatinine 1.3 mg/dL (0.7-1.3) Estimated GFR (Cockcroft-Gault) 69.9 BUN/Creatinine Ratio 13 (6-20) Glucose Level 90 mg/dL (70-99) Calcium Level 9.5 mg/dL (8.5-10.1) Total Bilirubin 0.4 mg/dL (0.2-1.0) Aspartate Amino Transf (AST/SGOT) 18 U/L (15-37) Alanine Aminotransferase (ALT/SGPT) 31 U/L (16-63) Alkaline Phosphatase 92 U/L (46-116) Troponin I Quantitative < 0.017 ng/mL (0.000-0.055) Total Protein 8.5 g/dL (6.4-8.2) Albumin 3.9 g/dL (3.4-5.0) Albumin/Globulin Ratio 0.8 (1.0-1.7) Lipase 97 U/L (73-393) Brief Hospital Course Mr. Hatfield is a 53 old male who came in with right-sided numbness and weakness. MRI negative, CTA CT head also unremarkable. He does have a dental abscess and started on Clinda. Already on aspirin full dose, history of CVA in the past otherwise seems to have fully recovered mostly, history of [facility] hospitalization for past CVAs. Neurology consulted, advised to start plavix, taper ASA/bridge for 2-3 weeks - ASA failure bec of sxs. New Rx Plavix and clinda ALl on chart' No PT needs Dw family at bedside proc; stroke work up Discharge Information Condition at Discharge: Improved, Stable Follow Up: Weeks (dentist; neuro prn) Disposition/Orders: D/C to Home Scheduled Aspirin (Aspirin) 325 Mg Tablet, 325 MG PO DAILY for TIA, (Reported) Entered as Reported by: ERNESTO HARTMAN RN on 01/06/1918 Last Action: Continued on 01/06/1919 by ERNESTO HARTMAN RN Atorvastatin Calcium (Atorvastatin Calcium) 20 Mg Tablet, 20 MG PO DAILY for FOR CHOLESTEROL, #30 Ref 0 (Reported) Entered as Reported by: ERNESTO HARTMAN RN on 01/06/1918 Last Action: Continued on 01/06/1919 by ERNESTO HARTMAN RN Clindamycin Hcl (Clindamycin Hcl) 300 Mg Capsule, 1 CAP PO TID for dental abscess, #21 Prescribed by: AILEEN OAKLEY on 01/06/19 1255 Clopidogrel Bisulfate (Clopidogrel) 75 Mg Tablet, 75 MG PO DAILYWBKFT for hx cva MDD 1, #60 Prescribed by: AILEEN OAKLEY on 01/06/19 1252 Lisinopril (Lisinopril) 40 Mg Tablet, 40 MG PO DAILY for FOR HYPERTENSION, #30 Ref 0 (Reported) Entered as Reported by: ERNESTO HARTMAN RN on 01/06/1918 Last Action: Continued on 01/06/1919 by LANG HU CHERRIE Y MD January 06, 2019 12:59
[2019-01-06] MEDS: CLOPIDOGREL BISULFATE 75 MG TABLET PO SCH (14:01)
--- NOTE | 2019-01-06 14:52 | NUR ---
SW consulted for ADL's needs rehab. Chart reviewed. Pt is self pay and does not qualify for SNU/Rehab evaluation. RA Physician.
[2019-01-06 15:28] VITALS: BP 142/90
[2019-01-06 19:35] VITALS: BP 147/97
--- NOTE | 2019-01-06 19:51 | NUR ---
Patient is for discharge today, however he stated that he's going to drive home. This nurse told him he cannot drive today. He's also refusing discharge saying that he still feels weak and he discussed it with PT/OT. Discussed with charge nurse and also paged the nurse supervisor prep. The patient was told that we can arrange a cab for him, however, he still refused.
[2019-01-06 23:35] VITALS: BP 135/78
[2019-01-07] MEDS: CLINDAMYCIN 900MG PREMIX 50 ML IV SCH (03:54)
[2019-01-07 05:39] LABS: CHOLESTEROL/HDL RATIO 5.2
[2019-01-07] MEDS: traMADol 50 MG TABLET PO PRN (06:13)
[2019-01-07 07:00] VITALS: BP 128/72
[2019-01-07] MEDS: ATORVASTATIN CALCIUM 20 MG TABLET PO SCH (08:52)
[2019-01-07] MEDS: ASPIRIN 325 MG TABLET PO SCH (08:52)
[2019-01-07] MEDS: LISINOPRIL 20 MG TABLET PO SCH (08:53)
[2019-01-07] MEDS: CLOPIDOGREL BISULFATE 75 MG TABLET PO SCH (08:53)
[2019-01-07] MEDS: HYDROcodone/APAP 5/325MG 1 TAB TABLET PO PRN (08:58)
[2019-01-07 11:00] VITALS: BP 143/87
--- NOTE | 2019-01-07 11:48 | PDOC ---
Provider Note Provider Note Patient did not DC yesterday for social issues, cab ride etc. Patient is self-pay cannot have rehabilitation benefits - dw SW All Rx have been done-no new Rx for me Patient will try to get home today-discussed with RN AILEEN OAKLEY MD January 07, 2019 11:48
--- NOTE | 2019-01-07 13:22 | NUR ---
pt discharged home with self care. was able to get someone to come and pick him up and another to drive his car home. he was given his two scripts for Clopidogrel and clindamyacin. He was wheeled down to the main entrance to a private vehicle. Gadiel Avila RN
== END 2019-01-07 13:24 | disposition home or self-care (01) | DRG 78 ==
LOC: ER 12:48 → 6 SOUTH 16:12
PROVIDERS: ADMIT Internal Medicine; ATTEND Internal Medicine
DX: I67.4 Hypertensive encephalopathy (principal); I69.351 Hemiplegia and hemiparesis following cerebral infarction affecting right dominant side; I10 Essential (primary) hypertension; K04.7 Periapical abscess without sinus; F12.90 Cannabis use, unspecified, uncomplicated; Z82.3 Family history of stroke; Z87.442 Personal history of urinary calculi; Z79.82 Long term (current) use of aspirin; Z82.49 Family history of ischemic heart disease and other diseases of the circulatory system
CPT/HCPCS: 36415; 70450; 70496; 70498; 70551; 80053; 80061; 83690; 84484; 85025; 85610; 85730; 93005; 93306; 96365; 96375; J1885; J3490; Q9967; 92610; 99285-25

== ENCOUNTER → 2020-04-25 | Outpatient (CLI) | payer OTHER ==
[~2020-04-25] MED LIST: ASPI325T8 PO; ATOR20TA58 PO; CLIN300C8 PO; CLOP75TA PO; LISI-130 PO
--- NOTE | 2020-04-25 15:48 | RAD ---
LUMBAR SPINE 2-3V DATE: 04/25/2020 12:00 AM INDICATION: BACK AND NECK PAIN. COMPARISON: None. FINDINGS: Five non-rib bearing lumbar-type vertebral bodies are present. Bones/Alignment: No evidence of acute compression fracture. There is no listhesis. Joints: Mild multilevel degenerative disc disease. Miscellaneous: Aortoiliac atherosclerotic disease IMPRESSION: Mild lumbar spondylosis Electronically signed by: Hu Wood MD (04/25/2020 3:45 PM) [id number]
--- NOTE | 2020-04-25 15:52 | RAD ---
CERVICAL SPINE 2-3V DATE: 04/25/2020 12:00 AM INDICATION: NECK PAIN COMPARISON: None. FINDINGS: The cervical spine is visualized to the level of the cervicothoracic junction on the lateral views. Bones/Alignment: No evidence of acute fracture. There is no listhesis. Normal alignment of the lateral masses of C1 on C2. Joints: Moderate degenerative disc disease. The facets are normally aligned. Soft tissue: No significant prevertebral soft tissue swelling. IMPRESSION: Moderate cervical spondylosis. Electronically signed by: Hu Wood MD (04/25/2020 3:49 PM) [id number]
== END | disposition home or self-care (01) ==
LOC: RAD 12:11
PROVIDERS: ATTEND Anesthesiology Pain Medicine
DX: M51.36 Other intervertebral disc degeneration, lumbar region (principal); M50.30 Other cervical disc degeneration, unspecified cervical region; M47.816 Spondylosis without myelopathy or radiculopathy, lumbar region; I70.0 Atherosclerosis of aorta; M47.812 Spondylosis without myelopathy or radiculopathy, cervical region
CPT/HCPCS: 72040; 72100